=== PATIENT | male | born 1960 | race Hispanic/Latino ===

== ENCOUNTER 2021-02-11 10:46 | Emergency (ER) | payer SELFPAY ==
[~2021-02-11] VITALS: Ht 182.9 cm; Wt 113.4 kg
[2021-02-11] MEDS ORDERED: ETOMIDATE 2 MG/ML 10 ML INJ IV ONE (12:14)
[2021-02-11] MEDS ORDERED: ETOMIDATE 2 MG/ML 10 ML INJ IV STA ×2 (15:08→18:08)
[2021-02-11] MEDS ORDERED: FENTANYL CITRATE/PF 100MCG/2 ML INJ IV ONE (15:15)
[2021-02-11] MEDS ORDERED: PROPOFOL IV EMULSION 10 MG/ML 20 ML VIAL IV ONE ×6 (16:05→17:59)
[2021-02-11] MEDS ORDERED: PROPOFOL IV EMULSION 50 ML IV ONE (16:13)
[2021-02-11] MEDS ORDERED: SODIUM CHLORIDE 0.9% 500ML 500 ML ONE (16:14)
[2021-02-11] MEDS ORDERED: MORPHINE SULFATE INJ 4 MG/ML INJ 1ML IV STA (17:46)
[2021-02-11] MEDS ORDERED: MORPHINE SULFATE INJ 2 MG/ML SYR ONE (17:54)
[2021-02-11 19:13] LABS: BASOPHILS % 0.3 % (0.0-1.0); EOSINOPHILS % 0.1 % (0.0-6.0); HEMATOCRIT 40.9 % (38.2-49.6); HEMOGLOBIN 13.7 g/dL (14.0-18.0); LYMPHOCYTES % 9.8 % (18.0-39.1); MEAN CORPUSCULAR HEMOGLOBIN 31.4 pg (28-32); MEAN CORPUSCULAR HGB CONC 33.5 g/dL (31-35); MEAN CORPUSCULAR VOLUME 93.8 fL (81-99); MONOCYTES # (AUTO) 0.7 (0.2-0.8); MONOCYTES % 6.7 % (4.4-11.3); NEUTROPHILS # (AUTO) 8.1 (2.1-6.9); NEUTROPHILS % 82.7 % (38.7-80.0); PLATELET COUNT 263 x10e3/uL (140-360); RED BLOOD COUNT 4.36 x10e6/uL (4.3-5.7); RED CELL DISTRIBUTION WIDTH 12.7 % (11.7-14.4)
[2021-02-11 19:26] LABS: INR 1.09; PARTIAL THROMBOPLASTIN TIME 27.5 seconds (23.8-35.5); PROTHROMBIN TIME 14.3 seconds (11.9-14.5)
[2021-02-11 19:35] LABS: ALBUMIN 3.9 g/dL (3.5-5.0); ALBUMIN/GLOBULIN RATIO 1.1 (0.8-2.0); ANION GAP 12.7 mmol/L (8-16); CALCIUM 8.5 mg/dL (8.4-10.2); CREATININE, SERUM 0.94 mg/dL (0.72-1.25); POTASSIUM 3.7 mmol/L (3.5-5.1)
[2021-02-11] MEDS ORDERED: LIDOCAINE HCL 2% LOCAL 20 ML VIAL ONE (20:26)
[2021-02-11] MEDS ORDERED: HYDROCODON-ACE1 EAC9 PO (21:08)
[2021-02-12 00:43] VITALS: BP 132/65
== END 2021-02-11 23:00 | disposition home or self-care (01) ==
LOC: ER 10:50 → EDBD 10:50 → ER 23:00
DX: M25.511 Pain in right shoulder (principal); S43.014A Anterior dislocation of right humerus, initial encounter; W10.8XXA Fall (on) (from) other stairs and steps, initial encounter; Y93.01 Activity, walking, marching and hiking
CPT/HCPCS: 23655; 36415; 73020; 73030; 73200; 80053; 85025; 85610; 85730; 93005; 99284; J2001; J2270; J2704; J3010; J7040; U0002